=== PATIENT | male | born 1960 | race Caucasian/White ===

== ENCOUNTER 2017-04-08 14:24 | Emergency (ER) | payer MEDICARE | END 2017-04-08 16:20 | disposition home or self-care (01) | LOC: ER1 14:24 | DX: T21.22XA Burn of second degree of abdominal wall, initial encounter (principal); T22.212A Burn of second degree of left forearm, initial encounter; T31.0 Burns involving less than 10% of body surface; I10 Essential (primary) hypertension; F17.200 Nicotine dependence, unspecified, uncomplicated; X12.XXXA Contact with other hot fluids, initial encounter; Y93.89 Activity, other specified; Z23 Encounter for immunization | CPT/HCPCS: 36415; 90471; 90714; 96374; 96375; 96376; 99283; J2270; J2405 ==